=== PATIENT | female | born 2005 | race Caucasian/White ===

== ENCOUNTER 2025-01-17 06:45 | Outpatient (REF) | payer BC, SELFPAY ==
--- OUTSIDE RECORDS SUMMARY | 2025-01-17 06:47 | XMS_ITS | Clinical Summary ---
Author Organization [facility] Address [address] [place] [id number] Phone Care Team Providers Care Yarn Man Name Role Phone Pcp, Unknown Primary Care Provider Unavailabl e Allergies No known active allergies Medications ondansetron (ZOFRAN-ODT) 4 MG disintegrating tablet Take 1 tablet (4 mg total) by mouth every 8 (eight) hours as needed for nausea. 20 tablet Active Encounters Date Type Department Care Team Description 12/09/2024 3:50 PM EDT - 12/09/2024 4:29 PM EDT Emergency [facility] [address] [place] [address] Sam Cross MD Discharge Disposition: Home or Self Care from Last 3 Months Social History Tobacco Use Types Packs/Day Years Used Date Smoking Tobacco: Never Assessed Education Answer Date Recorded Are you interested in more education? Not on sade e 12/09/2024 Are you concerned about learning? Not on file 12/09/2024 No 12/09/2024 No 12/09/2024 Digital Access Answer Date Recorded No 12/09/2024 No 12/09/2024 Reliable internet access at home? Not on file 12/09/2024 Device with a working camera? Not on file Intimate Partner Violence Answer Date R ecorded Are you denied basic needs s uch as food, clothing, or medical care? No 12/09/2024 In the past 12 months have y ou been in a relationship with a person who hurts, threatens, or tries to control you? No 12/09/2024 Are you denied basic needs s uch as food, clothing, or medical care? No 12/09/2024 In the past 12 months have y ou been in a relationship with a person who hurts, threatens, or tries to control you? No 12/09/2024 Comments Unknown Sex and Gender Information Value Date Recorded Sex Assigned at Not on file Legal Sex Female 3:22 PM EDT Gender Identity Not on file Sexual Orientation Not on file Last Filed Vital Signs Vital Sign Reading Time Taken Comments Blood Pressure 114/70 12/09/2024 3:26 PM EDT Pulse 96 12/09/2024 3:26 PM EDT Temperature 36.7 C (98.1 F) 12/09/2024 3:26 PM EDT Respiratory Rate 18 12/09/2024 3:26 PM EDT Oxygen Saturation 98% 12/09/2024 3:26 PM EDT Inhaled Oxygen Concentration - - Weight 72.6 kg (160 lb) 12/09/2024 3:26 PM EDT Height 162.6 cm (5' 4 ) 12/09/2024 3:26 PM EDT Body Mass Index 27.46 12/09/2024 3:26 PM EDT Plan of Treatment Health Maintenance Due Date Last Done Comments MMR VACCINES (1 of 1 - Stand jeramy series) 2006 DEVELOPMENTAL/BEHAVIORAL SCR EENING (PHQ, PSC, or SWYC) 2008 DEPRESSION SCREENING 2017 COMBINED DTaP,Tdap,Td (2 - T d or Tdap) 12/14/2017 11/16/2017 SMOKING Hx and SMOKELESS TOB ACCO SCREENING 2018 VARICELLA VACCINES (1 of 2 - 13+ 2-dose series) 2018 HPV VACCINES (1 - 3-dose series) 2020 CHLAMYDIA SCREENING 2021 MENINGOCOCCAL VACCINES (B) ( 1 of 2 - Standard) 2021 HEPATITIS C SCREENING 11/04/2023 HIV ONE-TIME SCREENING (18-6 5 YEARS) 11/04/2023 INFLUENZA VACCINE (#1) 2024 HEPATITIS B VACCINES (1 of 3 - 19+ 3-dose series) 2024 COVID-19 VACCINE (1 - 2024-2 6 season) 2024 BMI ASSESSMENT 12/09/2025 12/09/2024 ADOLESCENT UNIVERSAL LIPID SCREENING Completed 10/22/2024 HEPATITIS A VACCINES Aged Out No long er eligible based on patient's age to complete this topic HIB VACCINES Aged Out No longer eligi ble based on patient's age to complete this topic MENINGOCOCCAL VACCINES (ACWY) Aged Out No longer eligible based on patient's age to complete this topic PNEUMOCOCCAL VACCINES (0-49 years) Aged Out No longer eligible based on patient's age to complete this topic Medical Devices Not on file Insurance [place] IN[place] [place] Care Teams Yarn Man Relationship Specialty Start Date End Date Pcp, Unknown PCP - General 12/09/24 Additional Source Comments The information contained in this document represents components of the legal health record. It is not the complete legal health record.[facility]
== END 2025-01-17 06:46 | disposition home or self-care (01) ==
LOC: HO.UMASIMG 06:45
PROVIDERS: Visit Provider Nurse Practitioner Women's Health
DX: Z13.89 Encounter for screening for other disorder (principal)